=== PATIENT | male | born 1965 | race Caucasian/White ===

== ENCOUNTER → 2023-05-23 | Outpatient (REF) | payer OTHER, SELFPAY | LOC: DHSLP | PROVIDERS: ATTENDING PHYSICIAN Internal Medicine Interventional Cardiology; FAMILY PHYSICIAN Family Medicine | DX: G47.30 Sleep apnea, unspecified (principal); R06.83 Snoring | CPT/HCPCS: 95800 ==

== ENCOUNTER 2023-11-22 07:21 | Emergency (ER) | payer OTHER, SELFPAY ==
[2023-11-22 07:22] VITALS: BP 146/90
[2023-11-22 07:43] VITALS: BMI 31.7
[2023-11-22 07:54] VITALS: BP 118/83
--- NOTE | 2023-11-22 07:55 | ED.CVA ---
History of Present Illness
General
Chief Complaint: CVA/TIA Symptoms
Source: patient and spouse
Exam Limitations: none
Time Seen by Provider: 11/22/23 07:35
Onset of Stroke Symptoms
Onset of symptoms known: Yes
Date of onset of symptoms: 11/22/23
Time of onset of symptoms: 06:30
History of Present Illness
History of Present Illness:
58-year-old male sudden onset of right-sided paresthesias face arm and leg. Occurred about 630. Lasted about 10 to 15 minutes. Resolved for 5 minutes or so and then just recurred in the face slightly more significantly. No weakness no visual
issues no speech issues no gait issues no other complaints. Symptoms are totally resolved. No history of similar episodes. Patient did have some slight irregular heartbeat feeling at 430 this morning. This happens occasionally with his atrial
fibrillation. He is on Coumadin. For atrial fibrillation and mechanical valve. INR's recently have been 2.5, 2.4, 2.3. He did take an extra half a milligram this morning.
Past History
Past History
ED Past Medical History: Arrthythmia (Atrial fib), HTN, Hypercholesterolemia, Valvular disease and Psychiatric
ED Past Surgical History: Cardiac (Aortic valve replaced, Metal) and Other (Rectal surgery for 'Mass/polyp' were used interchangable.)
Social History
Tobacco: Non-smoker
Alcohol: Daily (Beer 1-2)
Drug: None
Personal: Single
Living: with family
Review of Systems
Review of Systems
All Other Systems: Not applicable
Respiratory: Reports no symptoms
Cardiac: Denies chest pain or syncope
Phy Exam
Physical Exam
Physical Exam:
GENERAL: Alert and oriented in no apparent distress
EYE: Orbits normal.
NECK: Supple, no carotid bruit
ENT: Pharynx without erythema
CARDIAC: Regular rate and rhythm with mechanical valve
LUNGS: Clear breath sounds,normal
ABDOMEN: Soft, without focal tenderness or distention
NEUROLOGICAL: Alert and oriented , cranial nerves II through XII intact. Speech normal. [id number] normal. No drift. Eye confrontation normal. Lower extremity strength normal. Light touch pinprick intact. Graphesthesia intact.
SKIN: Warm and dry, no rash or lesion, no discoloration, skin intact.
MUSCULOSKELETAL: No edema,no deformity.Good color
PSYCH: Normal and appropriate interaction.
Course
Orders/Labs/Results
Orders:
Orders
11/22/23 07:26
EKG [Electrocardiogram (*1)] Urgent
Reason for Study: Palpitations
EKG- Treatment ONCE
11/22/23 07:54
CT Head & Neck Angio W/wo IV Urgent
Comment:
Reason For Exam: Sensory right-sided TIA. Mechanical valve. Antic
Cardiac Monitoring- Treatment ONCE
Pulse Ox/cont/shift [RESP] Stat
Quantity: 1
11/22/23 07:58
Basic Metabolic Panel Urgent
Complete Blood Count/With Diff Urgent
PTT Urgent
Prothrombin Time Urgent
11/22/23 10:13
Enoxaparin Sodium [Lovenox] 100 mg SC NOW STA
Abnormal Lab Results
11/22/23 11/22/23
07:57 07:58
PT 22.9 H Sec
(11.4-14.6)
APTT 37.5 H Sec
(23.4-35.0)
Chloride 109 H mmol/L
(98-107)
POC Glucose 106 H mg/dl
(70-99)
11/22/23 07:58
11/22/23 07:58
Vital Signs
Initial and Last Documented VS:
Initial Vital Signs
Temp Pulse Resp BP Pulse Ox
98.5 F 70 16 146/90 95
11/22/23 07:22 11/22/23 07:22 11/22/23 07:22 11/22/23 07:22 11/22/23 07:22
Last Documented Vital Signs
Temp Pulse Resp BP Pulse Ox
98.5 F 64 14 116/81 95
11/22/23 07:22 11/22/23 09:00 11/22/23 09:00 11/22/23 09:00 11/22/23 09:00
MDM/Problems Addressed
Differential Diagnosis Includes:
Patient describing transient sensory TIA. Neurologic exam is normal at this time. Check CT angio. INR pending.
*Pulse Oximetry
Patient hypoxic: no
*EKG
Interpreted by ED Provider?: Yes
Interpretation: normal
Comparison EKG: no changes
Heart Rate: 63
Rate: normal
Rhythm: sinus and PAC's
Grethel: normal axis
Interval: normal interval
QRS Pattern: normal QRS
Ischemia: no ischemia
*Critical Care Note
Total Time (30-74mins, 75-104mins- exclusive of procedures): Not Applicable
Data Reviewed
Review of Other/Old Records Reveals: Labs, Records and Testing
Update Note
Update Note:
Patient is remained asymptomatic. INR subtherapeutic. Discussed with neurology. Agreed with a sensory TIA and a low INR does not need admission. Discussed a bridging dose of Lovenox today and tomorrow which patient has at home. Also discussed
with cardiology who agrees this is a reasonable approach.
ED Attending Note
-
Portions of this chart may have been created with voice recognition software.� Occasional wrong word or��sound alike� substitutions may have occurred due to the inherent limitations of voice recognition software.
Discharge Plan
Departure
Patient Disposition: Home (Routine Discharge)
Date of Disposition: 11/22/23
Time of Disposition: 10:14
Patient with high blood pressure during this ER visit?: Yes
Discharge Problem:
Sensory TIA, History of PAF, History of mechanical valve
Instructions: Transient Ischemic Attack (DC), BLOOD PRESSURE
Prescriptions:
No Action
multivitamin [Daily Multiple] 1 EACH tablet
1 ea PO DAILY
warfarin [Jantoven] 5 MG tablet
4 mg PO DAILY
Patient Comments:
it was held on friday due to high inr
esomeprazole magnesium [Nexium] 20 MG capsule,delayed release(DR/EC)
20 mg PO DAILY
escitalopram oxalate 20 MG tablet
10 mg PO DAILY
amlodipine-benazepril 1 CAPSULE capsule
1 cap PO DAILY
atorvastatin 10 MG tablet
5 mg PO QPM
acetaminophen [Tylenol Extra Strength] 500 MG tablet
1 - 2 tab PO PRN PRN (Reason: COUGH)
Coq10
600 mg PO DAILY
Referrals:
Christopher Thorne MD [Active] - Next open appointment
Soo Oneill DO [Family Provider] -
Juanis Gonzalez DO [Active] - Next open appointment
Activity Restrictions/Additional Instructions:
Increase your Coumadin to 5 mg daily
Give yourself a dose of Lovenox tomorrow morning
Check your INR Friday
Close follow-up with primary cards and neurology
Return with any recurring episode, bleeding issues etc.
Interventions
Interventions:
*Risk Screen - Suicide Last Done: 11/22/23 07:22
*General Assessment Last Done: 11/22/23 07:22
*Neglect/Abuse Screening Last Done: 11/22/23 07:22
ED- Fall Risk Assessment Last Done: 11/22/23 08:07
*ED COVID-19 Vaccine History Last Done: 11/22/23 09:07
ED- Pulmonary Assessment Last Done: 11/22/23 07:44
ED- Neurological Assessment Last Done: 11/22/23 08:05
ED- Cardiac Assessment Last Done: 11/22/23 07:44
Discharge Date and Time
Print Language: IRISH
[2023-11-22 08:00] VITALS: BP 114/80
[2023-11-22 08:03] LABS: Glucose - Point of Care 106 mg/dl (70-99)
[2023-11-22 08:15] LABS: % Basophils 0.8 % (0-2); % Eosinophils 1.7 % (0-6); % Immature Granulocytes 0.5 % (0-0.5); % Lymphocytes 25.8 % (20.5-51.1); % Monocytes 8.8 % (1.7-9.3); % Neutrophils 62.4 % (42.2-75.2); Absolute Basophils 0.1 10^3/uL (0-0.2); Absolute Eosinophils 0.1 10^3/uL (0-0.7); Absolute Lymphocytes 1.6 10^3/uL (1.2-3.4); Absolute Monocytes 0.6 10^3/uL (0.1-0.6); Hematocrit 43.9 % (39.0-52.0); Hemoglobin 15.5 g/dL (13.0-18.0); Mean Corp Hgb Conc. 35.3 g/dL (33.0-37.0); Mean Corpuscular Hgb 30.2 pg (27.0-31.0); Mean Corpuscular Volume 85.6 fL (80.0-94.0); Mean Platelet Volume 9.6 fL (7.4-10.4); Nucleated Red Blood Cells % 0 % (-); Platelet Count 277 10^3/uL (130-400); Red Blood Cell Count 5.13 10^6/uL (4.70-6.10); Red Cell Dist. Width 12.6 % (11.5-14.5); White Blood Cell Count 6.3 10^3/uL (4.8-10.8)
[2023-11-22 08:26] LABS: Blood Urea Nitrogen 16 mg/dl (9-20); Calcium 8.9 mg/dl (8.4-10.2); Carbon Dioxide 23 mmol/L (22-30); Chloride 109 mmol/L (98-107); Estimated Creatinine Clearance 100 ml/min; Glucose 95 mg/dl (70-99); Potassium 4.6 mmol/L (3.5-5.1); Sodium 138 mmol/L (135-145); eGFR > 60.00
[2023-11-22 08:27] LABS: APTT 37.5 Sec (23.4-35.0); INR 2.04; PT 22.9 Sec (11.4-14.6)
[2023-11-22 08:49] VITALS: BP 125/72
[2023-11-22 09:00] VITALS: BP 116/81
[2023-11-22] MEDS: LOVENOX 100 MG SC (10:20)
== END 2023-11-22 10:40 | disposition home or self-care (01) ==
LOC: EMR 07:21
PROVIDERS: EMERGENCY PHYSICIAN Emergency Medicine; FAMILY PHYSICIAN Family Medicine
DX: I48.0 Paroxysmal atrial fibrillation (principal); G45.8 Other transient cerebral ischemic attacks and related syndromes; I10 Essential (primary) hypertension; E78.00 Pure hypercholesterolemia, unspecified; Z95.2 Presence of prosthetic heart valve; Z79.01 Long term (current) use of anticoagulants
CPT/HCPCS: 99285; 96372; 70496; 70498; 80048; 82962; 85025; 85610; 85730; 93005; Q9967

== ENCOUNTER → 2024-04-25 06:46 | Outpatient (REF) | payer OTHER, SELFPAY | LOC: MRI 06:46 | PROVIDERS: ATTENDING PHYSICIAN Orthopaedic Surgery; FAMILY PHYSICIAN Family Medicine | DX: M75.42 Impingement syndrome of left shoulder (principal) | CPT/HCPCS: 73221 ==

== ENCOUNTER → 2024-08-12 09:41 | Outpatient (REF) | payer OTHER, SELFPAY | LOC: RCS 09:41 | PROVIDERS: ATTENDING PHYSICIAN Physician Assistant Medical; FAMILY PHYSICIAN Family Medicine | DX: R07.9 Chest pain, unspecified (principal); I48.0 Paroxysmal atrial fibrillation; I10 Essential (primary) hypertension | CPT/HCPCS: 93017; 93350; Q9957 ==

== ENCOUNTER → 2024-08-13 12:52 | Outpatient (REF) | payer OTHER, SELFPAY | LOC: RCS 12:52 | PROVIDERS: ATTENDING PHYSICIAN Physician Assistant Medical; FAMILY PHYSICIAN Family Medicine | DX: R07.9 Chest pain, unspecified (principal); I10 Essential (primary) hypertension; Z95.2 Presence of prosthetic heart valve | CPT/HCPCS: 93306 ==

== ENCOUNTER → 2024-12-24 15:19 | Outpatient (REF) | payer OTHER, SELFPAY | LOC: MRI 3T 15:19 | PROVIDERS: ATTENDING PHYSICIAN Surgery; FAMILY PHYSICIAN Family Medicine | DX: R97.20 Elevated prostate specific antigen [PSA] (principal) | CPT/HCPCS: 72197; A9575 ==

== ENCOUNTER → 2025-01-18 16:12 | Emergency (ER) | payer OTHER, SELFPAY ==
[2025-01-18 16:13] VITALS: BP 140/73
--- NOTE | 2025-01-18 16:46 | ED.GENMED ---
ED Provider Triage
<Tripp Pinto MD, Resident - Last Filed: 01/18/25 17:33>
-
Patient seen by provider in Triage?: Seen in Triage
History of Present Illness
<Tripp Pinto MD, Resident - Last Filed: 01/18/25 17:33>
General
Chief Complaint: Skin Problem
Source: patient
Exam Limitations: none
Time Seen by Provider: 01/18/25 16:32
History of Present Illness
History of Present Illness:
Pt presents for what he states is an abscess on his anterior abdominal wall. He states that a week ago, he had a small painless bump on his abdominal wall, that progressively increased in size, erythematous, and more tender. No fever, chills,
nausea, headache, diarrhea, vomiting, weight loss, numbness/ tingling. He then went to urgent care on Friday where they stated it could be a boil or cyst and discharged him with cephalexin for 7 days. Today he presents because the pain has gotten
worse. Has shoulder arthroscopic surgery scheduled for his left biceps tendon this week and is worried the infection will affect his ability to get surgery. on Coumadin for a mechanical heart valve.
Past History
<Tripp Pinto MD, Resident - Last Filed: 01/18/25 17:33>
Past History
ED Past Medical History: Arrthythmia (Atrial fib), HTN, Hypercholesterolemia, Valvular disease and Psychiatric
ED Past Surgical History: Cardiac (Aortic valve replaced, Metal) and Other (Rectal surgery for 'Mass/polyp' were used interchangable.)
Social History
Tobacco: Non-smoker
Alcohol: Daily (Beer 1-2)
Drug: None
Personal: Single
Living: with family
Review of Systems
<Tripp Pinto MD, Resident - Last Filed: 01/18/25 17:33>
Review of Systems
All Other Systems: ROS reviewed and negative except as documented in HPI and ROS
Phy Exam
<Tripp Pinto MD, Resident - Last Filed: 01/18/25 17:33>
General Physical Exam
General Presentation: well appearing and no apparent distress
General Skin: warm
General Habitus: normal
General Mental: alert
Cardiovascular Exam
Cardiovascular Exam: regular rate/rhythm and no edema
Pulmonary Exam
Pulmonary Exam: lungs clear and no respiratory distress
Gastrointestinal Exam
Gastrointestinal Exam: normal bowel sounds, non tender, soft and non distended
Skin Exam
Skin Exam: other (localized erythematous area on abdominal wall with solid induration, 2 cm x 1 cm, tender to palpation, surrounding 15 cm cellulitis area )
Course
<Tripp Pinto MD, Resident - Last Filed: 01/18/25 17:33>
Vital Signs
Initial and Last Documented VS:
Initial Vital Signs
Temp Pulse Resp BP Pulse Ox
98.4 F 56 16 140/73 98
01/18/25 16:13 01/18/25 16:13 01/18/25 16:13 01/18/25 16:13 01/18/25 16:13
Last Documented Vital Signs
Temp Pulse Resp BP Pulse Ox
98.4 F 56 16 140/73 98
01/18/25 16:13 01/18/25 16:13 01/18/25 16:13 01/18/25 16:13 01/18/25 16:47
<Braulio Crespo MD - Last Filed: 01/18/25 17:34>
Vital Signs
Initial and Last Documented VS:
Initial Vital Signs
Temp Pulse Resp BP Pulse Ox
98.4 F 56 16 140/73 98
01/18/25 16:13 01/18/25 16:13 01/18/25 16:13 01/18/25 16:13 01/18/25 16:13
Last Documented Vital Signs
Temp Pulse Resp BP Pulse Ox
98.4 F 56 16 140/73 98
01/18/25 16:13 01/18/25 16:13 01/18/25 16:13 01/18/25 16:13 01/18/25 16:47
Procedures
<Tripp Pinto MD, Resident - Last Filed: 01/18/25 17:33>
Incision/Drainage/Joint Aspiration
Middle Anterior Abdomen:
Anethesia: 1% Lidocaine with Epi
Preparation: cleaned with Betadine
Type of procedure: incise
Nature of site: abscess
Description of abscess: less than 3cm
Loculations broken up: Yes
How much fluid was obtained?: small amount
Fluid description: purulent
Treatment: packed with gauze
<Tripp Pinto MD, Resident - Last Filed: 01/18/25 17:33>
MDM/Problems Addressed
Differential Diagnosis Includes:
cellulitis, abscess, infected cyst,
MDM/Problems Addressed:
- area was sterilized with Betadine, with incision and drainage being performed after anesthesia with lidocaine and epi, with small scant amount of pus being expressed
Will discharge patient home with clindamycin 600 mg tid x 5 days to protect against MRSA. Contact orthopedic surgeon and follow up with PCP in 5 days.
<Tripp Pinto MD, Resident - Last Filed: 01/18/25 17:33>
*Pulse Oximetry
SaO2: 98
Oxygen Mode of Delivery: Room air
Patient hypoxic: no
*Critical Care Note
Total Time (30-74mins, 75-104mins- exclusive of procedures): Not Applicable
ED Attending Note
<Tripp Pinto MD, Resident - Last Filed: 01/18/25 17:33>
-
Portions of this chart may have been created with voice recognition software.� Occasional wrong word or��sound alike� substitutions may have occurred due to the inherent limitations of voice recognition software.
<Braulio Crespo MD - Last Filed: 01/18/25 17:34>
ED Attending Note
Patient seen and examined by attending physician: Yes
I performed a history and physical exam of patient and discussed management with resident, I reviewed resident's note and agree with documented findings and plan of care.: Yes
ED Attending Note:
Patient started cephalexin for local abdominal infection 1-1/2 days ago complaining of increasing redness and swelling. No fever or chills. No systemic symptoms. Scheduled for orthopedic surgery this Friday. Is transitioning to Lovenox. On
Coumadin normally.
On exam patient is nontoxic in no distress. Warm and dry. Perfusing well. No respiratory distress. Abdomen is soft with no diffuse tenderness. Slightly bulbous abdomen. Above the umbilicus approximately 10 cm there is a small hard indurated
area approximately 2 cm with tenderness. Surrounding erythema consistent with cellulitis.
Impression is local abscess/cellulitis.
Area was prepped sterilely. 1% with lidocaine locally. Abscess was opened with a #15 blade. Approximately 1 to 2 cc of purulent material. Wound was cultured. Wound was Relatively small secondary to his Coumadin use and trying to keep bleeding
to a minimum.
Patient nontoxic. Will add clindamycin pending culture. No indication for admission at this time
Discharge Plan
Departure
Patient Disposition: Home (Routine Discharge)
Date of Disposition: 01/18/25
Time of Disposition: 17:29
Patient with high blood pressure during this ER visit?: No
Condition: Fair
Discharge Problem:
Abdominal wall abscess
Instructions: Cellulitis (Skin Infection), Adult (DC), Abscess incision and drainage - ED (DC)
Prescriptions:
New
clindamycin HCl [Cleocin HCl] 300 mg capsule
600 mg PO TID 5 Days Qty: 30 0RF
No Action
multivitamin [Daily Multiple] 1 EACH tablet
1 ea PO DAILY
warfarin [Jantoven] 5 MG tablet
4 mg PO DAILY
Patient Comments:
it was held on friday due to high inr
esomeprazole magnesium [Nexium] 20 MG capsule,delayed release(DR/EC)
20 mg PO DAILY
escitalopram oxalate 20 MG tablet
10 mg PO DAILY
amlodipine-benazepril 1 CAPSULE capsule
1 cap PO DAILY
atorvastatin 10 MG tablet
5 mg PO QPM
acetaminophen [Tylenol Extra Strength] 500 MG tablet
1 - 2 tab PO PRN PRN (Reason: COUGH)
Coq10
600 mg PO DAILY
Referrals:
Soo Oneill DO [Family Provider, Family Practice]
Interventions
Interventions:
*Risk Screen - Suicide Last Done: 01/18/25 16:14
*Neglect/Abuse Screening Last Done: 01/18/25 16:14
Discharge Date and Time
Print Language: MALAY
[2025-01-18] MEDS: CLEOCIN 600 MG PO (18:14)
== END | disposition home or self-care (01) ==
LOC: EMR 16:12
PROVIDERS: EMERGENCY PHYSICIAN Emergency Medicine; FAMILY PHYSICIAN Family Medicine
DX: L02.211 Cutaneous abscess of abdominal wall (principal); E78.00 Pure hypercholesterolemia, unspecified; I10 Essential (primary) hypertension; I48.91 Unspecified atrial fibrillation; Z79.01 Long term (current) use of anticoagulants; Z95.2 Presence of prosthetic heart valve
CPT/HCPCS: 99283; 10060; 87070; 87205